=== PATIENT | female | born 1950 | race Caucasian/White ===

== ENCOUNTER 2018-03-25 17:33 | Emergency (ER) | payer MEDICARE ==
[~2018-03-25] VITALS: Ht 157.5 cm; Wt 79.0 kg
[~2018-03-25 17:33] MED LIST: AMLO5TAB2 PO; LEVO100T PO; METO25TA2 PO
[2018-03-25] MEDS ORDERED: IBUPROFEN 200 MG TABLET PO ONE (18:30)
[2018-03-25 19:10] LABS: ALANINE AMINOTRANSFERASE 19 U/L (12-78); ALBUMIN 3.8 g/dL (3.4-5.0); ANION GAP 8 mmol/L (5-15); CALCIUM 8.2 mg/dL (8.5-10.1); CHLORIDE 107 mmol/L (98-107); CREATININE 1.18 mg/dL (0.55-1.02)
[2018-03-25] MEDS ORDERED: PROCHLORPERAZINE 5 MG/ML, 2ML ONE (19:12)
[2018-03-25] MEDS ORDERED: KETOROLAC 30 MG/1 ML ONE (19:12)
[2018-03-25 19:13] LABS: ALKALINE PHOSPHATASE 81 U/L (45-117); BILIRUBIN,TOTAL 1.4 mg/dL (0.2-1.0); TOTAL PROTEIN 6.9 g/dL (6.4-8.2)
[2018-03-25 19:16] LABS: BASOPHILS % (AUTO) 0 % (0-1); EOSINOPHILS # (AUTO) 0.02 x10^3/uL (0-0.4); EOSINOPHILS % (AUTO) 0 % (1-7); LYMPHOCYTES # (AUTO) 0.57 x10^3/uL (1-3.4); LYMPHOCYTES % (AUTO) 6 % (22-44); MD NO; MEAN CORPUSCULAR HEMOGLOBIN 28.3 pg (27.0-34.8); MEAN CORPUSCULAR HGB CONC 33.5 g/dL (32.4-35.8); MEAN CORPUSCULAR VOLUME 84.5 fL (80-100); MEAN PLATELET VOLUME 8.2 fL (7.4-10.4); MONOCYTES # (AUTO) 0.38 x10^3/uL (0.2-0.8); MONOCYTES % (AUTO) 4 % (2-9); NEUTROPHILS % (AUTO) 91 % (42-75); PLATELET COUNT 230 x10^3/uL (130-400); RED BLOOD COUNT 5.13 x10^6/uL (3.82-5.3)
[2018-03-25] MEDS ORDERED: PROCHLORPERAZINE 5 MG/ML, 2ML IVPush ONE (19:30)
[2018-03-25] MEDS ORDERED: SODIUM CHLORIDE 0.9% 1,000ML IVBOLUS ONE (19:30)
[2018-03-25] MEDS ORDERED: KETOROLAC 30 MG/1 ML IVPush ONE (19:30)
[2018-03-25 20:41] LABS: MICROSCOPIC AUTO
[2018-03-25 21:00] VITALS: BP 124/64
[2018-03-25 21:00] LABS: CULTURE INDICATED? NO
== END 2018-03-25 22:14 | disposition home or self-care (01) ==
LOC: ED 22:08
DX: B34.9 Viral infection, unspecified (principal); I10 Essential (primary) hypertension
CPT/HCPCS: 36415; 80053; 81001; 83690; 85025; 93005; 96361; 96374; 96375; 99285; J0780; J1885; J7030